=== PATIENT | female | born 1950 | race Caucasian/White ===

== ENCOUNTER → 2016-08-21 | Outpatient (CLI) | payer OTHER, MEDICARE ==
[~2016-08-21] MED LIST: AMBIEN10 M1; ASPIRIN CHILDRE81 MG PO; DAYPRO600 M1 PO; EFFEXOR XR75 MG PO; LOSARTAN-HCTZ PO; MACROBID100 M1 PO; MULTIVITAMIN1 CTB PO; Metformin Hydr500 MG PO; POTASSIUM CITR10 MEQ PO; PROLOPRIM100 MG PO; TRAZODONE50 MG PO; VITAMIN D5000 I2 PO; VYTORIN 10 MG-21 TA1 PO
[2016-08-21 08:51] LABS: HEMOGLOBIN A1c 5.6 % (4.8-5.6)
[2016-08-21 08:52] LABS: ALBUMIN 3.9 gm/dl (3.1-4.5); BILIRUBIN, DIRECT 0.2 mg/dL (0.0-0.2); BILIRUBIN, TOTAL 0.7 mg/dl (0.2-1.0); POTASSIUM 4.7 mmol/L (3.5-5.1)
== END | disposition home or self-care (01) ==
LOC: LAB 08:05
PROVIDERS: Internal Medicine
DX: E11.9 Type 2 diabetes mellitus without complications (principal); I10 Essential (primary) hypertension; E55.9 Vitamin D deficiency, unspecified; E78.4 Other hyperlipidemia

== ENCOUNTER → 2016-10-02 | Outpatient (CLI) | payer OTHER | END | disposition home or self-care (01) | LOC: CARD 07:24 | DX: I08.1 Rheumatic disorders of both mitral and tricuspid valves (principal); R01.1 Cardiac murmur, unspecified; R51 Headache ==

== ENCOUNTER → 2017-02-16 | Outpatient (CLI) | payer OTHER ==
[2017-02-16 09:46] LABS: ALBUMIN 3.8 gm/dl (3.1-4.5); ALKALINE PHOSPHATASE 57 U/L (45-117); BILIRUBIN, DIRECT 0.1 mg/dL (0.0-0.2); BUN 23 mg/dl (7-24); CHLORIDE 103 mmol/L (98-107); CHOLESTEROL 151 mg/dL (<200); CREATININE 1.06 mg/dL (0.55-1.02); HDL CHOLESTEROL 74 mg/dl (40-60); LDL CHOLESTEROL 58 mg/dL (9-159); POTASSIUM 4.8 mmol/L (3.5-5.1); SGOT/AST 18 IU/L (3-35); SGPT/ALT 26 U/L (12-78); SODIUM 139 mmol/L (136-145); TOTAL PROTEIN 7.3 gm/dL (6.4-8.2); TRIGLYCERIDES 96 mg/dl (<150); VLDL CHOLESTEROL 19 mg/dL (6-40)
== END | disposition home or self-care (01) ==
LOC: LAB 08:52
PROVIDERS: Internal Medicine
DX: E78.4 Other hyperlipidemia (principal); I10 Essential (primary) hypertension; E11.9 Type 2 diabetes mellitus without complications; E55.9 Vitamin D deficiency, unspecified

== ENCOUNTER 2017-04-29 08:57 | Emergency (ER) | payer OTHER ==
[~2017-04-29] VITALS: Ht 157.4 cm; Wt 77.1 kg
[2017-04-29 09:25] LABS: BILIRUBIN NEGATIVE (NEGATIVE); BLOOD 2+ (NEGATIVE); CLARITY SL CLOUDY (CLEAR); COLOR YELLOW (YELLOW); GLUCOSE NEGATIVE (NEGATIVE); KETONE NEGATIVE (NEGATIVE); LEUKO ESTERASE 3+ (NEGATIVE); NITRITE NEGATIVE (NEGATIVE); PH 5.5 (5.0-9.0); UROBILINOGEN 0.2 E.U./dl (0.2-1.0)
[2017-04-29 09:32] LABS: BACTERIA 2+; RBC 16-20 rbc/hpf (0-2); WBC TNTC wbc/hpf (0-5)
[2017-04-29] MEDS ORDERED: AMINOPHYLLIN200 MG PO (09:37)
== END 2017-04-29 09:53 | disposition home or self-care (01) ==
LOC: ED 08:57
PROVIDERS: Physician Assistant
DX: N39.0 Urinary tract infection, site not specified (principal); Z91.041 Radiographic dye allergy status; Z88.2 Allergy status to sulfonamides; Z88.8 Allergy status to other drugs, medicaments and biological substances; Z79.84 Long term (current) use of oral hypoglycemic drugs; Z79.82 Long term (current) use of aspirin; Z79.899 Other long term (current) drug therapy

== ENCOUNTER 2017-05-19 02:24 | Inpatient (IN) | payer OTHER, MEDICARE ==
[~2017-05-19] VITALS: Ht 157.4 cm; Wt 80.9 kg
[2017-05-19] VITALS (12 sets, daily range): BP systolic 134–192; BP diastolic 55–103
--- NOTE | ~2017-05-19 | EKG ---
[place] ELECTROCARDIOGRAM REPORT NAME: DAVE GOLDMAN UNIT #: [id number] ROOM: [id number] DOCTOR: RADHA ANSARI,RISSA BIRTHDATE: [birth year] DOS: 05/19/2017 TIME: 0243 hours. IMPRESSION: 1. Sinus rhythm. 2. Nonspecific ST-T changes. 3. Normal QT interval. RISSA GARCIA MD CM:EKGRPT:ELECTROCARDIOGRAM REPORT [id number] RISSA GARCIA MD
[~2017-05-19 02:24] MED LIST changes: +AMINOPHYLLIN200 MG PO
[2017-05-19] MEDS ORDERED: COZAAR100 MG PO (02:39)
[2017-05-19] MEDS ORDERED: CARDURA1 M1 PO (02:40)
[2017-05-19] MEDS ORDERED: OMEPRAZOLE20 M2 PO (02:41)
[2017-05-19] MEDS ORDERED: MACRODANTIN50 MG PO (02:41)
[2017-05-19] MEDS ORDERED: 'CIPRO500 M1 PO (02:43)
[2017-05-19 02:59] LABS: BASO # 0.1 10*3/uL (0.0-0.1); BASO % 0.7 % (0.0-1.0); EOS # 0.2 10*3/uL (0.0-0.4); EOS % 2.1 % (1.0-4.0); HEMATOCRIT 35.6 % (37.0-47.0); LYMPH # 2.1 10*3/uL (1.3-4.4); LYMPH % 29.2 % (27.0-41.0); MEAN CELL VOLUME 91.3 fl (81.0-99.0); MEAN CORPUSCULAR HGB 30.8 pg (27.0-31.0); MEAN CORPUSCULAR HGB CONC 33.7 g/dl (33.0-37.0); MONO # 0.5 10*3/uL (0.1-1.0); MONO % 7.6 % (3.0-9.0); NEUT # 4.3 10*3/uL (2.3-7.9); NEUT % 60.1 % (47.0-73.0); PLATELET COUNT AUTOMATED 248 10*3/uL (130-400); RED CELL DISTRI WIDTH 13.3 % (0-14.5); WHITE BLOOD COUNT 7.1 10*3/uL (4.8-10.8)
[2017-05-19 03:13] LABS: INTERNATIONAL NORM RATIO 0.9 (2.0-3.5)
[2017-05-19 03:15] LABS: ALBUMIN 3.6 gm/dl (3.1-4.5); ALKALINE PHOSPHATASE 60 U/L (45-117); BUN 22 mg/dl (7-24); CHLORIDE 104 mmol/L (98-107); CREATININE 0.94 mg/dL (0.55-1.02); POTASSIUM 4.2 mmol/L (3.5-5.1); SGOT/AST 15 IU/L (3-35); SGPT/ALT 27 U/L (12-78); SODIUM 140 mmol/L (136-145)
[2017-05-19 03:18] LABS: TROPONIN I < 0.015 ng/ml (<0.045)
[2017-05-19 03:25] LABS: BILIRUBIN NEGATIVE (NEGATIVE); BLOOD 1+ (NEGATIVE); CLARITY CLOUDY (CLEAR); COLOR YELLOW (YELLOW); GLUCOSE NEGATIVE (NEGATIVE); KETONE NEGATIVE (NEGATIVE); LEUKO ESTERASE 2+ (NEGATIVE); NITRITE POSITIVE (NEGATIVE); PH 5.5 (5.0-9.0); UROBILINOGEN 0.2 E.U./dl (0.2-1.0)
[2017-05-19 03:31] LABS: BACTERIA 4+; WBC TNTC wbc/hpf (0-5)
[2017-05-19 06:00] LABS: BUN 21 mg/dl (7-24); CHLORIDE 104 mmol/L (98-107); CREATININE 0.99 mg/dL (0.55-1.02); POTASSIUM 3.8 mmol/L (3.5-5.1); SODIUM 139 mmol/L (136-145)
[2017-05-19 06:05] LABS: FREE T4 1.04 ng/dl (0.76-1.46); PHOSPHOROUS 3.3 mg/dL (2.5-4.9)
[2017-05-19 06:11] LABS: BASO % 0.3 % (0.0-1.0); EOS # 0.1 10*3/uL (0.0-0.4); EOS % 0.7 % (1.0-4.0); HEMOGLOBIN 11.4 g/dl (12.0-16.0); LYMPH # 1.5 10*3/uL (1.3-4.4); LYMPH % 16.6 % (27.0-41.0); MEAN CELL VOLUME 91.4 fl (81.0-99.0); MEAN CORPUSCULAR HGB 30.6 pg (27.0-31.0); MEAN CORPUSCULAR HGB CONC 33.5 g/dl (33.0-37.0); MEAN PLATELET VOLUME 9.4 fl (9.6-12.3); MONO # 0.5 10*3/uL (0.1-1.0); MONO % 5.8 % (3.0-9.0); NEUT # 6.7 10*3/uL (2.3-7.9); NEUT % 76.4 % (47.0-73.0); PLATELET COUNT AUTOMATED 245 10*3/uL (130-400); RED BLOOD COUNT 3.72 10*6/uL (4.10-5.10); RED CELL DISTRI WIDTH 13.3 % (0-14.5); WHITE BLOOD COUNT 8.7 10*3/uL (4.8-10.8)
[2017-05-19 07:14] LABS: VITAMIN D, 25-HYDROXY 42.1 ng/mL (30-100)
[2017-05-20] VITALS (7 sets, daily range): BP systolic 112–170; BP diastolic 61–92
[2017-05-20 06:51] LABS: BASO % 0.5 % (0.0-1.0); EOS # 0.2 10*3/uL (0.0-0.4); EOS % 2.9 % (1.0-4.0); HEMOGLOBIN 11.3 g/dl (12.0-16.0); LYMPH # 1.6 10*3/uL (1.3-4.4); LYMPH % 28.4 % (27.0-41.0); MEAN CELL VOLUME 90.7 fl (81.0-99.0); MEAN CORPUSCULAR HGB 30.1 pg (27.0-31.0); MEAN CORPUSCULAR HGB CONC 33.2 g/dl (33.0-37.0); MEAN PLATELET VOLUME 9.1 fl (9.6-12.3); MONO # 0.5 10*3/uL (0.1-1.0); MONO % 9.5 % (3.0-9.0); NEUT # 3.3 10*3/uL (2.3-7.9); NEUT % 58.5 % (47.0-73.0); PLATELET COUNT AUTOMATED 249 10*3/uL (130-400); RED BLOOD COUNT 3.75 10*6/uL (4.10-5.10); RED CELL DISTRI WIDTH 13.2 % (0-14.5); WHITE BLOOD COUNT 5.6 10*3/uL (4.8-10.8)
[2017-05-20 07:29] LABS: BUN 20 mg/dl (7-24); CHLORIDE 101 mmol/L (98-107); CHOLESTEROL 204 mg/dL (<200); CREATININE 1.06 mg/dL (0.55-1.02); POTASSIUM 4.4 mmol/L (3.5-5.1); SODIUM 140 mmol/L (136-145); TRIGLYCERIDES 95 mg/dl (<150); VLDL CHOLESTEROL 19 mg/dL (6-40)
[2017-05-20 07:30] LABS: HDL CHOLESTEROL 76 mg/dl (40-60); LDL CHOLESTEROL 109 mg/dL (9-159)
[2017-05-21 00:18] VITALS: BP 116/64
[2017-05-21 07:22] LABS: BUN 22 mg/dl (7-24); CHLORIDE 101 mmol/L (98-107); POTASSIUM 4.2 mmol/L (3.5-5.1); SODIUM 138 mmol/L (136-145)
[2017-05-21 08:00] VITALS: BP 126/58
[2017-05-21 12:00] VITALS: BP 135/59
[2017-05-21 16:00] VITALS: BP 103/52
[2017-05-21] MEDS ORDERED: LASIX40 MG PO (16:12)
[2017-05-21] MEDS ORDERED: VIBRAMYCIN100 MG PO (16:12)
[2017-05-21] MEDS ORDERED: B12,B-12,B 12500 MC1 PO (16:12)
== END 2017-05-21 16:43 | disposition home or self-care (01) | DRG 871 ==
LOC: ED 02:24 → EDHOLD 04:05 → 5E 04:05
PROVIDERS: Emergency Medicine; Internal Medicine; Student in an Organized Health Care Education/Training Program
DX: A41.9 Sepsis, unspecified organism (principal); I50.33 Acute on chronic diastolic (congestive) heart failure; E87.2 Acidosis; E11.65 Type 2 diabetes mellitus with hyperglycemia; N39.0 Urinary tract infection, site not specified; R31.9 Hematuria, unspecified; I16.0 Hypertensive urgency; I25.10 Atherosclerotic heart disease of native coronary artery without angina pectoris; E55.9 Vitamin D deficiency, unspecified; I11.0 Hypertensive heart disease with heart failure; E78.5 Hyperlipidemia, unspecified; K21.9 Gastro-esophageal reflux disease without esophagitis; E53.8 Deficiency of other specified B group vitamins; Z88.2 Allergy status to sulfonamides; Z88.8 Allergy status to other drugs, medicaments and biological substances; Z91.041 Radiographic dye allergy status

== ENCOUNTER → 2017-06-14 | Outpatient (CLI) | payer OTHER, MEDICARE ==
[~2017-06-14] MED LIST changes: +'CIPRO500 M1 PO; +B12,B-12,B 12500 MC1 PO; +CARDURA1 M1 PO; +COZAAR100 MG PO; +LASIX40 MG PO; +MACRODANTIN50 MG PO; +OMEPRAZOLE20 M2 PO; +VIBRAMYCIN100 MG PO
[2017-06-14 09:39] LABS: CREATININE 1.18 mg/dL (0.55-1.02); POTASSIUM 4.2 mmol/L (3.5-5.1)
== END | disposition home or self-care (01) ==
LOC: LAB 08:48
PROVIDERS: Internal Medicine
DX: I10 Essential (primary) hypertension (principal); E11.9 Type 2 diabetes mellitus without complications

== ENCOUNTER → 2017-06-18 | Outpatient (CLI) | payer OTHER, MEDICARE ==
[2017-06-18 11:36] LABS: HEMATOCRIT 34.6 % (37.0-47.0); HEMOGLOBIN 11.7 g/dl (12.0-16.0); MEAN CELL VOLUME 89.6 fl (81.0-99.0); MEAN CORPUSCULAR HGB 30.3 pg (27.0-31.0); MEAN CORPUSCULAR HGB CONC 33.8 g/dl (33.0-37.0); MEAN PLATELET VOLUME 9.5 fl (9.6-12.3); RED BLOOD COUNT 3.86 10*6/uL (4.10-5.10); RED CELL DISTRI WIDTH 13.2 % (0-14.5); WHITE BLOOD COUNT 7.7 10*3/uL (4.8-10.8)
[2017-06-18 12:08] LABS: ALBUMIN 3.9 gm/dl (3.1-4.5); BUN 27 mg/dl (7-24); CHLORIDE 101 mmol/L (98-107); CHOLESTEROL 157 mg/dL (<200); POTASSIUM 4.3 mmol/L (3.5-5.1); SGOT/AST 17 IU/L (3-35); SGPT/ALT 23 U/L (12-78); SODIUM 139 mmol/L (136-145); TOTAL PROTEIN 7.4 gm/dL (6.4-8.2); TRIGLYCERIDES 134 mg/dl (<150); VLDL CHOLESTEROL 27 mg/dL (6-40)
[2017-06-18 12:10] LABS: ALKALINE PHOSPHATASE 67 U/L (45-117); CPK 104 U/L (26-192); HDL CHOLESTEROL 69 mg/dl (40-60); LDL CHOLESTEROL 61 mg/dL (9-159)
[2017-06-18 12:46] LABS: VITAMIN D, 25-HYDROXY 47.2 ng/mL (30-100)
== END | disposition home or self-care (01) ==
LOC: LAB 10:55
PROVIDERS: Family Medicine
DX: E78.00 Pure hypercholesterolemia, unspecified (principal); E11.9 Type 2 diabetes mellitus without complications; I10 Essential (primary) hypertension; E55.9 Vitamin D deficiency, unspecified; N39.0 Urinary tract infection, site not specified; R53.83 Other fatigue

== ENCOUNTER → 2017-06-20 | Outpatient (CLI) | payer OTHER, MEDICARE | END | disposition home or self-care (01) | LOC: US 03:55 | DX: I65.23 Occlusion and stenosis of bilateral carotid arteries (principal) ==

== ENCOUNTER → 2017-08-07 | Outpatient (CLI) | payer OTHER, MEDICARE | END | disposition home or self-care (01) | LOC: MAMMO 16:06 | DX: Z12.31 Encounter for screening mammogram for malignant neoplasm of breast (principal) ==

== ENCOUNTER → 2017-09-12 | Outpatient (CLI) | payer OTHER, MEDICARE ==
[2017-09-12 09:16] LABS: ALBUMIN 3.9 gm/dl (3.1-4.5); CREATININE 1.13 mg/dL (0.55-1.02); POTASSIUM 4.5 mmol/L (3.5-5.1)
[2017-09-12 09:17] LABS: TOTAL PROTEIN 7.3 gm/dL (6.4-8.2)
== END | disposition home or self-care (01) ==
LOC: LAB 08:05
PROVIDERS: Family Medicine
DX: I10 Essential (primary) hypertension (principal); E11.9 Type 2 diabetes mellitus without complications; E78.00 Pure hypercholesterolemia, unspecified

== ENCOUNTER → 2018-01-10 | Outpatient (CLI) | payer OTHER, MEDICARE ==
[2018-01-10 10:05] LABS: ALBUMIN 3.4 gm/dl (3.1-4.5); BUN 21 mg/dl (7-24); CHLORIDE 104 mmol/L (98-107); CHOLESTEROL 141 mg/dL (<200); POTASSIUM 4.3 mmol/L (3.5-5.1); SODIUM 139 mmol/L (136-145); TRIGLYCERIDES 129 mg/dl (<150); VLDL CHOLESTEROL 26 mg/dL (6-40)
[2018-01-10 10:07] LABS: ALKALINE PHOSPHATASE 70 U/L (45-117); CPK 77 U/L (26-192); CREATININE 0.97 mg/dL (0.55-1.02); HDL CHOLESTEROL 60 mg/dl (40-60); LDL CHOLESTEROL 55 mg/dL (9-159); SGOT/AST 15 IU/L (3-35); SGPT/ALT 20 U/L (12-78); TOTAL PROTEIN 6.8 gm/dL (6.4-8.2)
== END | disposition home or self-care (01) ==
LOC: LAB 08:51
PROVIDERS: Family Medicine
DX: E78.00 Pure hypercholesterolemia, unspecified (principal); E11.9 Type 2 diabetes mellitus without complications; I10 Essential (primary) hypertension; E55.9 Vitamin D deficiency, unspecified

== ENCOUNTER → 2018-04-04 | Outpatient (CLI) | payer OTHER, MEDICARE ==
[2018-04-04 10:12] LABS: POTASSIUM 4.3 mmol/L (3.5-5.1)
[2018-04-04 10:22] LABS: ALBUMIN 3.6 gm/dl (3.1-4.5); CREATININE 1.25 mg/dL (0.55-1.02); TOTAL PROTEIN 7.6 gm/dL (6.4-8.2)
== END | disposition home or self-care (01) ==
LOC: LAB 08:52
PROVIDERS: Family Medicine
DX: E78.00 Pure hypercholesterolemia, unspecified (principal); E11.9 Type 2 diabetes mellitus without complications; I10 Essential (primary) hypertension; E55.9 Vitamin D deficiency, unspecified

== ENCOUNTER → 2018-07-03 | Outpatient (CLI) | payer OTHER, MEDICARE | END | disposition home or self-care (01) | LOC: US 16:06 | DX: S37.001A Unspecified injury of right kidney, initial encounter (principal); N26.1 Atrophy of kidney (terminal); X58.XXXA Exposure to other specified factors, initial encounter; Y93.89 Activity, other specified; Y92.89 Other specified places as the place of occurrence of the external cause; Y99.8 Other external cause status ==

== ENCOUNTER → 2018-09-11 | Outpatient (CLI) | payer OTHER, MEDICARE | END | disposition home or self-care (01) | LOC: RAD 14:46 | DX: M25.512 Pain in left shoulder (principal); M25.511 Pain in right shoulder ==

== ENCOUNTER → 2018-09-20 | Outpatient (CLI) | payer OTHER, MEDICARE | END | disposition home or self-care (01) | LOC: RAD 10:15 | DX: M48.02 Spinal stenosis, cervical region (principal) ==

== ENCOUNTER → 2018-09-30 | Outpatient (CLI) | payer OTHER, MEDICARE ==
[2018-09-30 10:13] LABS: BILIRUBIN NEGATIVE (NEGATIVE); BLOOD TRACE-INTACT (NEGATIVE); CLARITY CLOUDY (CLEAR); COLOR YELLOW (YELLOW); GLUCOSE NEGATIVE (NEGATIVE); KETONE NEGATIVE (NEGATIVE); LEUKO ESTERASE 3+ (NEGATIVE); NITRITE POSITIVE (NEGATIVE); SPECIFIC GRAVITY 1.015 (1.005-1.030); UROBILINOGEN 0.2 E.U./dl (0.2-1.0)
[2018-09-30 11:17] LABS: BACTERIA 4+; RBC 21-30 rbc/hpf (0-2); WBC TNTC wbc/hpf (0-5)
== END | disposition home or self-care (01) ==
LOC: LAB 09:40
DX: N39.0 Urinary tract infection, site not specified (principal)

== ENCOUNTER → 2018-09-30 | Outpatient (CLI) | payer OTHER, MEDICARE ==
[2018-09-30 09:11] LABS: HEMOGLOBIN 12.2 g/dl (12.0-16.0); MEAN CELL VOLUME 94.1 fl (81.0-99.0); MEAN PLATELET VOLUME 9.5 fl (9.6-12.3); RED BLOOD COUNT 3.93 10*6/uL (4.10-5.10); RED CELL DISTRI WIDTH 13.4 % (0-14.5); WHITE BLOOD COUNT 6.1 10*3/uL (4.8-10.8)
[2018-09-30 09:19] LABS: ALBUMIN 3.7 gm/dl (3.1-4.5); ALKALINE PHOSPHATASE 49 U/L (45-117); BUN 20 mg/dl (7-24); CHLORIDE 104 mmol/L (98-107); CHOLESTEROL 219 mg/dL (<200); CREATININE 0.97 mg/dL (0.55-1.02); HDL CHOLESTEROL 57 mg/dl (40-60); LDL CHOLESTEROL 132 mg/dL (9-159); POTASSIUM 4.7 mmol/L (3.5-5.1); SGOT/AST 17 IU/L (3-35); SGPT/ALT 27 U/L (12-78); SODIUM 140 mmol/L (136-145); TRIGLYCERIDES 149 mg/dl (<150); VLDL CHOLESTEROL 30 mg/dL (6-40)
== END | disposition home or self-care (01) ==
LOC: LAB 07:52
PROVIDERS: Family Medicine
DX: E78.00 Pure hypercholesterolemia, unspecified (principal); E11.9 Type 2 diabetes mellitus without complications; I10 Essential (primary) hypertension

== ENCOUNTER → 2018-10-28 | Outpatient (CLI) | payer OTHER, MEDICARE | END | disposition home or self-care (01) | LOC: LAB 16:18 | DX: N39.0 Urinary tract infection, site not specified (principal); N26.1 Atrophy of kidney (terminal) ==

== ENCOUNTER → 2018-12-30 | Outpatient (CLI) | payer OTHER, MEDICARE ==
[2018-12-30 09:26] LABS: HEMATOCRIT 38.3 % (37.0-47.0); HEMOGLOBIN 12.7 g/dl (12.0-16.0); MEAN CELL VOLUME 92.3 fl (81.0-99.0); MEAN CORPUSCULAR HGB 30.6 pg (27.0-31.0); MEAN CORPUSCULAR HGB CONC 33.2 g/dl (33.0-37.0); MEAN PLATELET VOLUME 9.3 fl (9.6-12.3); RED BLOOD COUNT 4.15 10*6/uL (4.10-5.10); RED CELL DISTRI WIDTH 13.2 % (0-14.5); WHITE BLOOD COUNT 7.1 10*3/uL (4.8-10.8)
[2018-12-30 10:00] LABS: POTASSIUM 4.4 mmol/L (3.5-5.1)
[2018-12-30 10:07] LABS: ALBUMIN 3.9 gm/dl (3.1-4.5); CREATININE 1.47 mg/dL (0.55-1.02); TOTAL PROTEIN 7.7 gm/dL (6.4-8.2)
== END | disposition home or self-care (01) ==
LOC: LAB 08:41
PROVIDERS: Family Medicine
DX: I12.9 Hypertensive chronic kidney disease with stage 1 through stage 4 chronic kidney disease, or unspecified chronic kidney disease (principal); E11.22 Type 2 diabetes mellitus with diabetic chronic kidney disease; N18.3 Chronic kidney disease, stage 3 (moderate); E55.9 Vitamin D deficiency, unspecified

== ENCOUNTER → 2019-12-15 | Outpatient (CLI) | payer OTHER, MEDICARE | END | disposition home or self-care (01) | LOC: CT 10:40 | PROVIDERS: ATTEND Nurse Practitioner Primary Care | DX: G93.89 Other specified disorders of brain (principal); R41.3 Other amnesia; R47.01 Aphasia ==

== ENCOUNTER → 2020-04-23 | Outpatient (CLI) | payer OTHER, MEDICARE ==
[~2020-04-23] MED LIST changes: +ADVANCED PROBI625 MG PO; +AMLODIPINE BESYL5 MG PO; +ATORVASTATIN CA10 M1 PO; +CEFUROXIME AXE500 MG PO; +DECADRON6 M1 PO; +DONEPEZIL HYDROC5 MG PO; +DOXAZOSIN MESYLA1 MG PO; +ECOTRIN81 M1 PO; +ESTRADIOL42.5 GM V; +FUROSEMIDE40 MG PO; +GLIMEPIRIDE4 M1 PO; +JANUVIA50 MG PO; +NEURONTIN300 MG PO; +POTASSIUM CITR10 ME1 PO; +PRILOSEC20 M1 PO; +ROPINIROLE HY0.25 MG PO; +VITAMIN B125000 MCG PO; +VITAMIN C1000 M5 PO; +VITAMIN D3125 MCG PO
== END | disposition home or self-care (01) ==
LOC: COVID19 11:17
PROVIDERS: ATTEND Nurse Practitioner Primary Care
DX: U07.1 COVID-19 (principal)

== ENCOUNTER 2020-04-27 20:32 | Inpatient (IN) | payer OTHER, MEDICARE ==
[~2020-04-27] VITALS: Ht 157.4 cm; Wt 77.3 kg
[~2020-04-27 20:32] MED LIST changes: -ADVANCED PROBI625 MG PO; -AMLODIPINE BESYL5 MG PO; -ATORVASTATIN CA10 M1 PO; -CEFUROXIME AXE500 MG PO; -DECADRON6 M1 PO; -DONEPEZIL HYDROC5 MG PO; -DOXAZOSIN MESYLA1 MG PO; -ECOTRIN81 M1 PO; -ESTRADIOL42.5 GM V; -FUROSEMIDE40 MG PO; -GLIMEPIRIDE4 M1 PO; -JANUVIA50 MG PO; -NEURONTIN300 MG PO; -POTASSIUM CITR10 ME1 PO; -PRILOSEC20 M1 PO; -ROPINIROLE HY0.25 MG PO; -VITAMIN B125000 MCG PO; -VITAMIN C1000 M5 PO; -VITAMIN D3125 MCG PO
[2020-04-27 20:35] VITALS: BP 148/75
[2020-04-27 20:57] LABS: BASO % 0.4 % (0.0-1.0); HEMATOCRIT 37.2 % (37.0-47.0); LYMPH # 0.9 10*3/uL (1.3-4.4); LYMPH % 19.5 % (27.0-41.0); MEAN CELL VOLUME 86.1 fl (81.0-99.0); MEAN CORPUSCULAR HGB 28.9 pg (27.0-31.0); MEAN CORPUSCULAR HGB CONC 33.6 g/dl (33.0-37.0); MEAN PLATELET VOLUME 9.5 fl (9.6-12.3); MONO # 0.2 10*3/uL (0.1-1.0); MONO % 3.3 % (3.0-9.0); NEUT # 3.5 10*3/uL (2.3-7.9); NEUT % 76.6 % (47.0-73.0); PLATELET COUNT AUTOMATED 187 10*3/uL (130-400); RED BLOOD COUNT 4.32 10*6/uL (4.10-5.10); RED CELL DISTRI WIDTH 13.4 % (0-14.5); WHITE BLOOD COUNT 4.5 10*3/uL (4.8-10.8)
[2020-04-27 20:58] VITALS: BP 134/68
[2020-04-27 21:13] LABS: CREATININE 1.28 mg/dL (0.55-1.02); POTASSIUM 3.4 mmol/L (3.5-5.1); TOTAL PROTEIN 7.1 gm/dL (6.4-8.2)
[2020-04-27 22:30] VITALS: BP 113/53
[2020-04-27 23:00] VITALS: BP 130/54
[2020-04-27 23:21] LABS: ABG BASE EXCESS 0.2 mmol/L (-2.0-2.0); ARTERIAL BLOOD GAS PH 7.469 (7.35-7.45)
[2020-04-27] MEDS ORDERED: NEURONTIN300 MG PO ×2 (23:32→23:39)
[2020-04-27] MEDS ORDERED: ATORVASTATIN CA10 M1 PO (23:32)
[2020-04-27] MEDS ORDERED: FUROSEMIDE40 MG PO (23:33)
[2020-04-27] MEDS ORDERED: GLIMEPIRIDE4 M1 PO (23:33)
[2020-04-27] MEDS ORDERED: ROPINIROLE HY0.25 MG PO (23:33)
[2020-04-27] MEDS ORDERED: TRAZODONE50 MG PO (23:34)
[2020-04-27] MEDS ORDERED: POTASSIUM CITR10 ME1 PO (23:35)
[2020-04-27] MEDS ORDERED: DONEPEZIL HYDROC5 MG PO (23:35)
[2020-04-27] MEDS ORDERED: AMLODIPINE BESYL5 MG PO (23:36)
[2020-04-27] MEDS ORDERED: JANUVIA50 MG PO (23:36)
[2020-04-27] MEDS ORDERED: ESTRADIOL42.5 GM V (23:36)
[2020-04-27] MEDS ORDERED: DOXAZOSIN MESYLA1 MG PO (23:37)
[2020-04-27] MEDS ORDERED: VITAMIN B125000 MCG PO (23:40)
[2020-04-27] MEDS ORDERED: VITAMIN C1000 M5 PO (23:40)
[2020-04-27] MEDS ORDERED: VITAMIN D3125 MCG PO (23:41)
[2020-04-27] MEDS ORDERED: ECOTRIN81 M1 PO (23:42)
[2020-04-27] MEDS ORDERED: PRILOSEC20 M1 PO (23:42)
[2020-04-27] MEDS ORDERED: ADVANCED PROBI625 MG PO (23:43)
[2020-04-28] VITALS: BP 130/54
[2020-04-28 06:09] LABS: HEMATOCRIT 36.9 % (37.0-47.0); MEAN CELL VOLUME 87.2 fl (81.0-99.0); MEAN CORPUSCULAR HGB 28.6 pg (27.0-31.0); MEAN CORPUSCULAR HGB CONC 32.8 g/dl (33.0-37.0); MEAN PLATELET VOLUME 9.7 fl (9.6-12.3); PLATELET COUNT AUTOMATED 170 10*3/uL (130-400); RED BLOOD COUNT 4.23 10*6/uL (4.10-5.10); RED CELL DISTRI WIDTH 13.4 % (0-14.5)
[2020-04-28 06:10] LABS: ALBUMIN 2.9 gm/dl (3.1-4.5); CREATININE 1.18 mg/dL (0.55-1.02); POTASSIUM 4.2 mmol/L (3.5-5.1)
[2020-04-28 06:12] LABS: FREE T4 1.56 ng/dl (0.76-1.46)
[2020-04-28 06:13] LABS: ACT PARTIAL THROMBO TIME 31.5 SECONDS (20.0-32.1); WHITE BLOOD COUNT 1.6 10*3/uL (4.8-10.8)
[2020-04-28 06:17] LABS: THYROID STIM HORMONE (HS) 0.575 uIU/ml (0.358-4.75)
[2020-04-28 06:52] LABS: ATYPICAL LYMPHS 3 % (0-0); PLATELET SUFFICIENCY NORMAL (NORMAL); POLYCHROMASIA SLIGHT; TOTAL CELLS COUNTED 100 #CELLS
[2020-04-28 08:00] VITALS: BP 115/67
[2020-04-28 08:06] LABS: FERRITIN 726.8 ng/mL (10.0-291.0); VITAMIN D, 25-HYDROXY 72.1 ng/mL (30-100)
[2020-04-28 09:22] LABS: BILIRUBIN Negative (Negative); BLOOD 1+ (Negative); CLARITY Turbid (Clear); COLOR Yellow (Yellow); GLUCOSE 1+ (Negative); KETONE 2+ (Negative); LEUKO ESTERASE 3+ (Negative); NITRITE Negative (Negative); UROBILINOGEN 0.2 E.U./dl (0.0-1.0)
[2020-04-28 09:39] LABS: BACTERIA 4+; WBC TNTC wbc/hpf (0-5)
[2020-04-28 15:25] VITALS: BP 105/47
[2020-04-28 20:00] VITALS: BP 117/58
[2020-04-29] VITALS: BP 121/58
[2020-04-29 06:18] LABS: HEMATOCRIT 35.7 % (37.0-47.0); LYMPH # 0.8 10*3/uL (1.3-4.4); LYMPH % 16.8 % (27.0-41.0); MEAN CELL VOLUME 86.4 fl (81.0-99.0); MEAN CORPUSCULAR HGB 28.8 pg (27.0-31.0); MEAN CORPUSCULAR HGB CONC 33.3 g/dl (33.0-37.0); MEAN PLATELET VOLUME 9.9 fl (9.6-12.3); MONO # 0.3 10*3/uL (0.1-1.0); MONO % 5.2 % (3.0-9.0); NEUT # 3.7 10*3/uL (2.3-7.9); NEUT % 77.6 % (47.0-73.0); RED BLOOD COUNT 4.13 10*6/uL (4.10-5.10); RED CELL DISTRI WIDTH 13.4 % (0-14.5); WHITE BLOOD COUNT 4.8 10*3/uL (4.8-10.8)
[2020-04-29 06:19] LABS: PLATELET COUNT AUTOMATED 225 10*3/uL (130-400)
[2020-04-29 06:30] LABS: CREATININE 1.14 mg/dL (0.55-1.02); POTASSIUM 3.8 mmol/L (3.5-5.1); TOTAL PROTEIN 6.8 gm/dL (6.4-8.2)
[2020-04-29 08:00] VITALS: BP 118/52
[2020-04-29 12:00] VITALS: BP 92/50
[2020-04-29 16:00] VITALS: BP 121/47
[2020-04-29 20:00] VITALS: BP 107/47
[2020-04-30] VITALS: BP 124/51
[2020-04-30 06:21] LABS: ALBUMIN 2.7 gm/dl (3.1-4.5); CREATININE 1.12 mg/dL (0.55-1.02); POTASSIUM 3.8 mmol/L (3.5-5.1); TOTAL PROTEIN 6.3 gm/dL (6.4-8.2)
[2020-04-30 06:49] LABS: HEMATOCRIT 33.8 % (37.0-47.0); LYMPH # 0.8 10*3/uL (1.3-4.4); LYMPH % 16.8 % (27.0-41.0); MEAN CELL VOLUME 86.4 fl (81.0-99.0); MEAN CORPUSCULAR HGB 29.2 pg (27.0-31.0); MEAN CORPUSCULAR HGB CONC 33.7 g/dl (33.0-37.0); MEAN PLATELET VOLUME 9.9 fl (9.6-12.3); MONO # 0.3 10*3/uL (0.1-1.0); MONO % 5.9 % (3.0-9.0); NEUT # 3.7 10*3/uL (2.3-7.9); NEUT % 77.1 % (47.0-73.0); PLATELET COUNT AUTOMATED 252 10*3/uL (130-400); RED BLOOD COUNT 3.91 10*6/uL (4.10-5.10); RED CELL DISTRI WIDTH 13.3 % (0-14.5); WHITE BLOOD COUNT 4.8 10*3/uL (4.8-10.8)
[2020-04-30 08:00] VITALS: BP 104/85
[2020-04-30 12:00] VITALS: BP 116/60
[2020-04-30] MEDS ORDERED: CEFUROXIME AXE500 MG PO (13:10)
[2020-04-30] MEDS ORDERED: DECADRON6 M1 PO (13:10)
== END 2020-04-30 17:16 | disposition home or self-care (01) | DRG 177 ==
LOC: ED 20:32 → EDHOLD 21:34 → 4E 21:34
PROVIDERS: Hospitalist; Internal Medicine; ADMIT Family Medicine; ATTEND Family Medicine
PROC: XW033E5 Introduction of Remdesivir Anti-infective into Peripheral Vein, Percutaneous Approach, New Technology Group 5 (ICD-10-PCS; principal; 2020-04-27)
DX: U07.1 COVID-19 (principal); J96.00 Acute respiratory failure, unspecified whether with hypoxia or hypercapnia; J12.82 Pneumonia due to coronavirus disease 2019; E87.1 Hypo-osmolality and hyponatremia; E44.0 Moderate protein-calorie malnutrition; I50.32 Chronic diastolic (congestive) heart failure; N17.9 Acute kidney failure, unspecified; I13.0 Hypertensive heart and chronic kidney disease with heart failure and stage 1 through stage 4 chronic kidney disease, or unspecified chronic kidney disease; N39.0 Urinary tract infection, site not specified; E87.6 Hypokalemia; I25.10 Atherosclerotic heart disease of native coronary artery without angina pectoris; E11.22 Type 2 diabetes mellitus with diabetic chronic kidney disease; K21.9 Gastro-esophageal reflux disease without esophagitis; N18.32 Chronic kidney disease, stage 3b; E11.65 Type 2 diabetes mellitus with hyperglycemia; E78.2 Mixed hyperlipidemia; E55.9 Vitamin D deficiency, unspecified; B96.89 Other specified bacterial agents as the cause of diseases classified elsewhere; Z88.2 Allergy status to sulfonamides; Z88.8 Allergy status to other drugs, medicaments and biological substances; Z91.041 Radiographic dye allergy status; Z82.49 Family history of ischemic heart disease and other diseases of the circulatory system; Z90.710 Acquired absence of both cervix and uterus; Z79.82 Long term (current) use of aspirin; Z79.899 Other long term (current) drug therapy; Z79.84 Long term (current) use of oral hypoglycemic drugs; Z68.32 Body mass index [BMI] 32.0-32.9, adult

== ENCOUNTER → 2020-06-22 | Outpatient (CLI) | payer OTHER, MEDICARE ==
[~2020-06-22] MED LIST changes: +ADVANCED PROBI625 MG PO; +AMLODIPINE BESYL5 MG PO; +ATORVASTATIN CA10 M1 PO; +CEFUROXIME AXE500 MG PO; +DECADRON6 M1 PO; +DONEPEZIL HYDROC5 MG PO; +DOXAZOSIN MESYLA1 MG PO; +ECOTRIN81 M1 PO; +ESTRADIOL42.5 GM V; +FUROSEMIDE40 MG PO; +GLIMEPIRIDE4 M1 PO; +JANUVIA50 MG PO; +NEURONTIN300 MG PO; +POTASSIUM CITR10 ME1 PO; +PRILOSEC20 M1 PO; +ROPINIROLE HY0.25 MG PO; +VITAMIN B125000 MCG PO; +VITAMIN C1000 M5 PO; +VITAMIN D3125 MCG PO
== END | disposition home or self-care (01) ==
LOC: MAMMO 06-14 11:30
PROVIDERS: ATTEND Nurse Practitioner Primary Care
DX: Z12.31 Encounter for screening mammogram for malignant neoplasm of breast (principal); N64.89 Other specified disorders of breast

== ENCOUNTER → 2020-11-04 | Outpatient (CLI) | payer MEDICARE | END | disposition home or self-care (01) | LOC: RESCLI 13:50 | PROVIDERS: ATTEND Internal Medicine | DX: E11.65 Type 2 diabetes mellitus with hyperglycemia (principal); I11.0 Hypertensive heart disease with heart failure; I50.33 Acute on chronic diastolic (congestive) heart failure; E55.9 Vitamin D deficiency, unspecified; G25.81 Restless legs syndrome; F39 Unspecified mood [affective] disorder; Z79.899 Other long term (current) drug therapy; Z88.8 Allergy status to other drugs, medicaments and biological substances; Z90.710 Acquired absence of both cervix and uterus ==

== ENCOUNTER → 2020-12-24 | Outpatient (CLI) | payer MEDICARE | END | disposition home or self-care (01) | LOC: RESCLI 01:20 | PROVIDERS: ATTEND Internal Medicine | DX: I11.0 Hypertensive heart disease with heart failure (principal); I50.33 Acute on chronic diastolic (congestive) heart failure; E55.9 Vitamin D deficiency, unspecified; E11.65 Type 2 diabetes mellitus with hyperglycemia; K21.9 Gastro-esophageal reflux disease without esophagitis; G25.81 Restless legs syndrome; R41.3 Other amnesia; F39 Unspecified mood [affective] disorder; K59.00 Constipation, unspecified; Z95.2 Presence of prosthetic heart valve; G62.9 Polyneuropathy, unspecified; B37.3 Candidiasis of vulva and vagina; Z79.899 Other long term (current) drug therapy; Z98.890 Other specified postprocedural states ==

== ENCOUNTER → 2021-06-28 | Outpatient (CLI) | payer MEDICARE | END | disposition home or self-care (01) | LOC: RESCLI 10:51 | PROVIDERS: ATTEND Internal Medicine | DX: E11.65 Type 2 diabetes mellitus with hyperglycemia (principal); E55.9 Vitamin D deficiency, unspecified; G25.81 Restless legs syndrome; K21.9 Gastro-esophageal reflux disease without esophagitis; F39 Unspecified mood [affective] disorder; R41.3 Other amnesia; I11.0 Hypertensive heart disease with heart failure; I50.33 Acute on chronic diastolic (congestive) heart failure; G62.9 Polyneuropathy, unspecified; G47.00 Insomnia, unspecified; R33.9 Retention of urine, unspecified; E78.2 Mixed hyperlipidemia; Z95.2 Presence of prosthetic heart valve; Z88.8 Allergy status to other drugs, medicaments and biological substances; Z98.890 Other specified postprocedural states; Z79.899 Other long term (current) drug therapy ==

== ENCOUNTER → 2022-10-10 | Outpatient (CLI) | payer MEDICARE | END | disposition home or self-care (01) | LOC: RESCLI 10:17 | PROVIDERS: ATTEND Student in an Organized Health Care Education/Training Program | DX: Z00.00 Encounter for general adult medical examination without abnormal findings (principal); E11.65 Type 2 diabetes mellitus with hyperglycemia; Z86.16 Personal history of COVID-19; Z88.8 Allergy status to other drugs, medicaments and biological substances; Z79.899 Other long term (current) drug therapy ==

== ENCOUNTER → 2022-10-13 | Outpatient (CLI) | payer MEDICARE | END | disposition home or self-care (01) | LOC: RAD 00:47 | PROVIDERS: ATTEND Nurse Practitioner Primary Care | DX: Z78.0 Asymptomatic menopausal state (principal) ==

== ENCOUNTER → 2023-05-07 | Outpatient (CLI) | payer MEDICARE | END | disposition home or self-care (01) | LOC: MAMMO 10:08 | PROVIDERS: ATTEND Nurse Practitioner Primary Care | DX: Z12.31 Encounter for screening mammogram for malignant neoplasm of breast (principal) ==

== ENCOUNTER → 2023-08-20 | Outpatient (CLI) | payer MEDICARE | END | disposition home or self-care (01) | LOC: LAB 10:50 | PROVIDERS: ATTEND Nurse Practitioner Primary Care | DX: I50.9 Heart failure, unspecified (principal) ==

== ENCOUNTER 2023-12-08 20:37 | Emergency (ER) | payer OTHER, MEDICARE ==
[~2023-12-08] VITALS: Ht 157.4 cm; Wt 82.6 kg
== END 2023-12-09 00:17 | disposition home or self-care (01) ==
LOC: ED 20:37
DX: R07.89 Other chest pain (principal); M54.2 Cervicalgia; I10 Essential (primary) hypertension; E11.9 Type 2 diabetes mellitus without complications; E78.00 Pure hypercholesterolemia, unspecified; Z91.041 Radiographic dye allergy status; Z88.2 Allergy status to sulfonamides; Z88.8 Allergy status to other drugs, medicaments and biological substances; Z90.710 Acquired absence of both cervix and uterus; Z90.12 Acquired absence of left breast and nipple; Z98.890 Other specified postprocedural states; V89.2XXA Person injured in unspecified motor-vehicle accident, traffic, initial encounter; Y93.89 Activity, other specified; Y92.410 Unspecified street and highway as the place of occurrence of the external cause; Y99.8 Other external cause status

== ENCOUNTER 2025-02-24 18:53 | Emergency (ER) | payer MEDICARE ==
[~2025-02-24] VITALS: Ht 157.4 cm; Wt 83.5 kg
[2025-02-24] MEDS ORDERED: HYDROmorphONE Hydrochloride 0.5 MG/0.5 ML SYRINGE IM ONE (19:20)
[2025-02-24] MEDS ORDERED: Tdap Vaccine 0.5 ML SYR (Adult Vaccine) IM ONE (19:20)
[2025-02-24] MEDS ORDERED: Acetaminophen/Oxycodone 5 MG/325 MG TABLET PO ONE (21:40)
[2025-02-24] MEDS ORDERED: PERCOCET 5-3251 EACH PO (21:42)
[2025-02-24] MEDS ORDERED: AMOX-CLAV 875-1 EACH PO (21:42)
[2025-02-24] MEDS ORDERED: Amoxicillin/Clavulanate Pota 875 MG TAB PO ONE (21:45)
== END 2025-02-24 22:39 | disposition home or self-care (01) ==
LOC: ED 18:53
DX: S52.122A Displaced fracture of head of left radius, initial encounter for closed fracture (principal); S01.511A Laceration without foreign body of lip, initial encounter; I10 Essential (primary) hypertension; K21.9 Gastro-esophageal reflux disease without esophagitis; E78.00 Pure hypercholesterolemia, unspecified; E11.40 Type 2 diabetes mellitus with diabetic neuropathy, unspecified; W19.XXXA Unspecified fall, initial encounter; Y93.89 Activity, other specified; Y92.89 Other specified places as the place of occurrence of the external cause; Y99.8 Other external cause status